=== PATIENT | male | born 1990 | race Caucasian/White ===

== ENCOUNTER 2017-09-17 13:55 | Observation (INO) | payer OTHER ==
[~2017-09-17] VITALS: Ht 180.3 cm; Wt 77.1 kg
--- NOTE | 2017-09-17 14:05 | ED GENERAL ADULT ---
History of Present Illness General Chief Complaint: ETOH/Drug Related Complaint Stated Complaint: CLEARANCE FOR [facility] Source: patient, family Exam Limitations: no limitations Allergies Coded Allergies: No Known Allergies (09/17/17) Reconcile Medications Folic Acid (Unknown Strength) TABLET (Unknown Dose) PO DAILY SUPPLEMENT ( Reported) Lisinopril/Hydrochlorothiazide (Lisinopril-Hctz 10-12.5 MG Tab) 10 MG-12.5 MG TABLET 1 TAB PO QAM BP (Reported) Thiamine HCl (Unknown Strength) TABLET (Unknown Dose) PO DAILY SUPPLEMENT ( Reported) Triage Note: PT STATES HE IS HERE FOR CLEARANCE TO [facility]. PT ADMITS TO DRINKING 20 SHOTS A NIGHT FOR THE PAST 10 YEARS. PT STATES HE HAS HAD ONE DETOX ONE OTHER TIME. PT DENIES DRUG USE OR SI/HI Triage Nurses Notes Reviewed? yes HPI: Patient presents requesting medical clearance to go to [facility]. Patient drinks up to 20 drinks a day. Patient has stopped drinking for a few days in the past and gets nauseous but he denies any DTs or seizures. He went through a detox approximately a year and half ago and remained sober for approximately 6 months before started drinking again. Patient denies any suicidal or homicidal ideations. (Shanice CASTRO,Alex Bowers) Vital Signs & Intake/Output Vital Signs & Intake/Output Vital Signs Date Time Temp Pulse Resp B/P B/P Pulse O2 O2 Flow FiO2 Mean Ox Delivery Rate 09/18 0736 98.7 67 18 140/71 100 Room Air 09/18 0722 97.1 72 18 135/84 98 Room Air 09/18 0721 97.1 72 18 135/84 09/18 0533 97.4 96 18 134/86 100 Room Air 09/18 0530 97.4 96 18 134/86 09/18 0315 98.8 94 17 136/76 09/18 0314 98.8 94 17 136/76 100 Room Air 09/18 0100 98.6 95 18 145/73 09/18 0050 98.6 95 18 145/73 100 Room Air 09/17 2306 98.2 94 18 138/91 100 Room Air Room Air 09/17 2301 98.2 94 18 138/91 09/171 97.4 84 18 137/93 99 Room Air 09/17 1933 98.8 86 18 150/92 09/17 1924 98.8 86 18 150/92 97 Room Air Room Air 09/17 1529 97.8 86 18 126/73 96 Room Air Room Air 09/17 1522 97.8 86 18 126/73 09/17 1400 97.4 97 18 136/86 98 ED Intake and Output 09/18 0000 09/17 1200 Intake Total Output Total Balance Patient 170 lb Weight Weight Reported by Patient Measurement Method (Demetria CASTRO,Jet Vasquez) Past History Travel History Traveled to [place] past 21 day No Medical History Any Pertinent Medical History? see below for history Cardiovascular: hypertension Psychiatric: alcohol dependence Surgical History Surgical History: non-contributory Psychosocial History What is your primary language Slovak Tobacco Use: Never used ETOH Use: alcoholic Illicit Drug Use: denies illicit drug use Family History Hx Contributory? No (Shanice CASTRO,Alex Bowers) Review of Systems Review of Systems Constitutional: Reports: no symptoms. EENTM: Reports: no symptoms. Respiratory: Reports: no symptoms. Cardiovascular: Reports: no symptoms. GI: Reports: no symptoms. Genitourinary: Reports: no symptoms. Musculoskeletal: Reports: no symptoms. Skin: Reports: no symptoms. Neurological/Psychological: Reports: no symptoms. Hematologic/Endocrine: Reports: no symptoms. Immunologic/Allergic: Reports: no symptoms. All Other Systems: Reviewed and Negative (Shanice CASTRO,Alex Bowers) Physical Exam Physical Exam General Appearance: well developed/nourished, alert, awake, mild distress Head: atraumatic, normal appearance Eyes: Bilateral: PERRL, EOMI. Ears, Nose, Throat: normal pharynx, normal ENT inspection, hearing grossly normal Neck: normal inspection, supple, full range of motion Respiratory: normal breath sounds, chest non-tender, no respiratory distress, lungs clear Cardiovascular: regular rate/rhythm, normal peripheral pulses Gastrointestinal: normal bowel sounds, soft, non-tender, no organomegaly Back: normal inspection, normal range of motion Extremities: normal inspection, normal capillary refill, normal range of motion, no edema Neurologic/Psych: no motor/sensory deficits, awake, alert, oriented x 3, normal gait, normal mood/affect Skin: intact, normal color, warm/dry Lymphatic: no anterior cervical meño Core Measures ACS in differential dx? No CVA/TIA Diagnosis: No Sepsis Present: No Sepsis Focused Exam Completed? No (Alex Prasad MD) Progress Differential Diagnoses I considered the following diagnoses in my evaluation of the patient: [ALCOHOL DEPENDENCY IN ACUTE WITHDRAWAL] Initial ED EKG: none Hand-Off Endorsed To: Demetria CASTRO,Jet Vasquez Endorsed Time: 1899 Pending: other ([place]) (Shanice CASTRO,Alex Bowers) Plan of Care: Orders Procedure Date/time Status Discharge Patient 09/18 0913 Active Regular Diet 09/[address] in observation 09/17 1544 Active ED Holding Orders 09/17 1544 Active Patient Data 09/17 1544 Active Vital Signs 09/17 1544 Active Code Status 09/17 1544 Active Intake & Output 09/17 1524 Active CIWA 09/17 1404 Active URINE DRUGS OF ABUSE 09/17 1404 Complete ETHANOL 09/17 1404 Complete COMPREHENSIVE METABOLIC PANEL 09/17 1404 Complete CBC WITHOUT DIFFERENTIAL 09/17 1404 Complete Current Medications Sig/Odalis Start time Last Medication Dose Stop Time Status Admin Hydrochlorothiazide 12.5 MG DAILY 09/18 1000 AC (Hydrodiuril) Lisinopril 10 MG DAILY 09/18 1000 AC (Prinivil) Ondansetron HCl 4 MG ONCE PRN 09/17 2330 AC 09/17 (Zofran) 2319 Laboratory Tests 09/17/17 1429: Serum Alcohol 204.0 09/17/17 1429: Anion Gap 17 H, Estimated GFR > 60, BUN/Creatinine Ratio 14.4, Glucose 91, Calcium 9.7, Total Bilirubin 0.6, AST 30, ALT 41, Alkaline Phosphatase 49, Total Protein 8.0, Albumin 5.0, Globulin 3.0, Albumin/Globulin Ratio 1.7, CBC w Diff NO MAN DIFF REQ, RBC 4.65 L, MCV 91.2, MCH 31.0, MCHC 33.9, RDW 14.9 H, MPV 6.5 L, Gran % 56.9, Lymphocytes % 29.5, Monocytes % 11.9 H, Eosinophils % 1.0, Basophils % 0.7, Absolute Granulocytes 2.9, Absolute Lymphocytes 1.5, Absolute Monocytes 0.6, Absolute Eosinophils 0.1, Absolute Basophils 0, Urine Opiates Screen < 100.00, Methadone Screen < 40, Barbiturate Screen < 60, Ur Phencyclidine Scrn < 6.00, Amphetamines Screen < 100, U Benzodiazepines Scrn < 85, Urine Cocaine Screen < 50, Urine Cannabis Screen < 5.00 Comments: 09/17/2017 8:39:08 PM patient signed out to me by Dr. Prasad at shift change management lead. Patient is resting comfortably. 09/18/2017 6:53:48 AM patient signed out to Dr. Prasad at shift change management lead after an uneventful emergency department stay overnight. (Demetria CASTRO,Jet Vasquez) Departure Departure Disposition: HOME OR SELF CARE Condition: Stable Clinical Impression Primary Impression: Alcohol dependency Additional Instructions: YOU ARE CLEARED TO GO TO [facility] FOR ALCOHOL REHAB Departure Forms: Customer Survey General Discharge Information (Shanice CASTRO,Alex Bowers) Critical Care Note Critical Care Note Critical Care Time: non-applicable (Shanice CASTRO,Alex Bowers) ED Attending Observation Initial Observation Note: I have seen and personally examined CRYSTAL WILLOUGHBY on 09/17/17 at 1543. I agree with the current emergency department documentation. The disposition (admission or discharge) is uncertain at this time, he needs a period of observation for the following reason(s): [Patient will need very close monitoring of his CIWA score. Unknown yet if he will require medical admission for alcohol dependency and acute withdrawal or if he can be treated at an inpatient rehabilitation facility.] The ED Nurse caring for this patient has been personally informed as to what the patient is being observed for. Observation Re-Evaluation: I have reevaluated CRYSTAL WILLOUGHBY on 09/17/17 at 1755. The physical findings that support the continued need to observe this patient include [patient resting comfortably. No acute distress. Lungs are clear to auscultation. We'll continue to closely monitor for alcohol withdrawal.]. Observation Discharge: I have reevaluated CRYSTAL WILLOUGHBY on 09/18/17 at 0914. The patient is: ([X]): Stable for discharge (): To be admitted to Nursing Floor (): To be placed in Observation on Nursing Floor (): For transfer to other facility The patient was being observed for [alcohol dependency and acute withdrawal] As a result of that observation, I have determined [stable for discharge to alcohol rehabilitation]. (Alex Prasad MD)
[2017-09-17 14:52] LABS: ABSOLUTE BASOPHIL COUNT 0 /CUMM (0.0-0.2); ABSOLUTE EOSINOPHIL COUNT 0.1 /CUMM (0.0-0.7); ABSOLUTE GRANULOCYTE CT 2.9 /CUMM (1.4-6.5); ABSOLUTE LYMPH COUNT 1.5 /CUMM (1.2-3.4); ABSOLUTE MONOCYTE COUNT 0.6 /CUMM (0.10-0.60); BASOPHIL % 0.7 % (0.0-2.0); GRANULOCYTE % 56.9 % (42.2-75.2); HEMATOCRIT 42.4 % (42-52); MEAN CORPUSCULAR HGB CONC 33.9 G/DL (33.0-37.0); MEAN CORPUSCULAR VOLUME 91.2 FL (80.0-94.0); MEAN PLATELET VOLUME 6.5 FL (7.4-10.4); PLATELET COUNT 281 /CUMM (130-400); RBC DISTRIBUTION WIDTH 14.9 % (11.5-14.5); RED BLOOD CELL CT 4.65 /CUMM (4.70-6.10); WHITE BLOOD CELL COUNT 5.2 /CUMM (4.8-10.8)
[2017-09-17 15:22] VITALS: BP 126/73
[2017-09-17] MEDS ORDERED: LISINOPRIL-HCT1 EAC2 PO (16:29)
[2017-09-17] MEDS ORDERED: THIAMINE HCL100 M1 PO (16:30)
[2017-09-17] MEDS ORDERED: FOLIC ACID0.4 M1 PO (16:30)
[2017-09-17 19:33] VITALS: BP 150/92
[2017-09-17 23:01] VITALS: BP 138/91
[2017-09-18 01:00] VITALS: BP 145/73
[2017-09-18 03:15] VITALS: BP 136/76
[2017-09-18 05:30] VITALS: BP 134/86
[2017-09-18 07:21] VITALS: BP 135/84
[2017-09-18 10:18] VITALS: BP 138/70
== END 2017-09-18 11:17 ==
LOC: ERH 13:55 → ERHI 15:44
PROVIDERS: Emergency Medicine
DX: F10.20 Alcohol dependence, uncomplicated (principal); I10 Essential (primary) hypertension
CPT/HCPCS: 6090; 80307; G0378; G0480; J3101